=== PATIENT | male | born 1950 | race Caucasian/White ===

== ENCOUNTER 2017-07-02 19:15 | Emergency (ER) | payer OTHER ==
[~2017-07-02] VITALS: Ht 172.7 cm; Wt 85.0 kg
[2017-07-02 19:17] VITALS: BP 147/83; PULSE 61; RESP 16; TEMP 97.8; O2SAT 96
[2017-07-02 20:47] VITALS: BP 136/82; PULSE 60; RESP 18; O2SAT 100
[2017-07-02] MEDS ORDERED: CYCL1TAB29 PO (20:49)
[2017-07-02] MEDS ORDERED: IBUP800T23 PO (20:49)
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
== END 2017-07-02 21:05 | disposition home or self-care (01) ==
LOC: NEPD 19:15
DX: S39.012A Strain of muscle, fascia and tendon of lower back, initial encounter (principal); S16.1XXA Strain of muscle, fascia and tendon at neck level, initial encounter; V49.49XA Driver injured in collision with other motor vehicles in traffic accident, initial encounter; Y92.524 Gas station as the place of occurrence of the external cause
CPT/HCPCS: 99283

== ENCOUNTER 2018-05-03 19:52 | Inpatient (IN) ==
[2018-05-03] MEDS ORDERED: Morphine Inj 4 MG/ML Vial IV.PUSH ONE (21:35)
--- NOTE | 2018-05-03 21:43 | ED ---
HPI General Chief Complaint: Abdominal Pain Stated Complaint: Abd pain Time Seen by Provider: 05/03/18 21:35 Source: patient and family Mode of arrival: ambulatory Limitations: no limitations History of Present Illness HPI narrative: 68-year-old male presents to the emergency department in the care of his spouse for evaluation of 10/10 abdominal pain 3 hours. Patient states had similar episode of severe pain late Monday night around 2 AM resolved after dose of Pepto-Bismol. Patient's had nausea without vomiting patient had bowel movement today. No bloody stools dark stools after Pepto- Bismol. Patient took dose of Pepto-Bismol today without symptom relief. Patient denies any chronic medical conditions or surgeries takes no prescription medications denies tobacco use occasional alcohol use. No known dietary indiscretion well water ingestion or foreign travel. No known history of gastritis peptic ulcer disease pancreatitis or gallbladder disease. Patient denies chest pain or shortness of breath. Patient is unable to identify exacerbating or alleviating factors. Pain is constant and unremitting. Pain is nonradiating to the back. Patient reports pain is not radiating to the lower extremities and no bladder or bowel dysfunction. No report of dysuria frequency urgency flank pain or hematuria. MD complaint: abdominal pain Onset (ago): day(s) Pain Consistency: constant Location: diffuse Severity: severe Severity scale (1-10): 10 Quality: aching and fullness Radiation: none Migration to: no migration Relieving factors: nothing Exacerbating factors: nothing Associated symptoms: nausea Related Data Allergies Allergy/AdvReac Type Severity Reaction Status Date / Time No Known Allergies Allergy Unverified 05/03/18 21:23 Review of Systems Except as stated in HPI: all other systems reviewed are negative PMFSH History History Provided By: Patient and Family Member Medical History Medical History Patient denies medical problems (Acute) Surgical History Surgical History No history of previous surgery (Acute) Social History Social History Substance History: No History of Abuse Second Hand Smoke Exposure: No Smoking Status: Never smoker How Often Do You Have a Drink Containing Alcohol: Monthly or less Recent Travel in [facility] within the Last 8 Weeks: No Recent Out of Country Travel within the Last 8 Weeks: No Exam Narrative Exam Narrative: GENERAL: Well-nourished, well-developed patient. Apparent discomfort moaning and groaning and holding his abdomen vital signs values in normal range SKIN: Focused skin assessment warm/dry. HEAD: Normocephalic. EYES: No scleral icterus. No injection or drainage. NECK: Supple, trachea midline. No JVD or lymphadenopathy. CARDIOVASCULAR: Regular rate and rhythm without murmurs, gallops, or rubs. Bilateral radial and dorsalis pedis pulses 2+ to palpation. RESPIRATORY: Breath sounds equal bilaterally. No accessory muscle use. GASTROINTESTINAL: Abdomen soft, non-tender to direct palpation no guarding no rebound no palpable pulsatile mass no palpable hepatosplenomegaly, mildly distended. No clinical Rivera sign on exam. MUSCULOSKELETAL: No cyanosis, or edema. BACK: Nontender without obvious deformity. No CVA tenderness. Course Reevaluation(s) Reevaluation #1: Case discussed with on-call [facility] physician Dr. Pacheco will admit to Dr. Peters Initial Documented Vital Signs Temperature 99.1 F 05/03/18 21:24 Pulse Rate 76 05/03/18 21:24 Respiratory Rate 16 05/03/18 21:24 Blood Pressure 136/77 05/03/18 21:24 Pulse Oximetry 100 05/03/18 21:24 Last Documented Vital Signs Temperature 99.1 F 05/03/18 21:24 Pulse Rate 67 05/04/18 00:54 Respiratory Rate 14 05/04/18 00:54 Blood Pressure 134/65 05/04/18 00:54 Pulse Oximetry 99 05/04/18 00:54 Critical Care Time Critical Care Time: Yes Total Critical Care Time: 35 Attestation: Aggregate critical care time was 35 minutes. Time to perform other separately billable procedures was not included in the critical care time. My time did not include minutes spent treating any other patients simultaneously or on activities that did not directly contribute to the patient's treatment. The services I provided to this patient were to treat and/or prevent clinically significant deterioration that could result in: Aneurysm, arrhythmia, I provided critical care services requiring my management, as noted below: Chart data review, documentation time, medication orders and management, vital sign assessments/reviewing monitor data, ordering and reviewing lab tests, ordering and interpreting/reviewing x-rays and diagnostic studies, care of the patient and discussion of the patient with the admitting physicians. Medical Decision Making MDM Narrative Medical decision making narrative: 68-year-old male with severe abdominal pain constant 3 hours intermittent onset since Monday night. Afebrile. Nausea without vomiting. Last bowel movement today. No history of CAD hypertension dyslipidemia or tobaccoism. Also no known history of kidney stones biliary colic gastritis peptic ulcer disease or pancreatitis. Patient placed on secured entrance monitor with continuous pulse oximetry IV access obtained patient administered morphine sulfate 4 mg IV Zofran 4 mg IV maintenance IV fluids 125 cc/h lab work collected and sent for resulting CT abdomen pelvis ordered along with EKG and portable upright x-ray to evaluate for free air Total chest x-ray no obvious subdiaphragmatic free air; EKG sinus rhythm rate [address] elevation injury pattern or ectopy noted artifact is present at baseline; patient has received morphine sulfate 4 mg without any pain relief Dilaudid 1 mg IV has been ordered. Ultrasound performed which identifies multiple stones gallbladder wall thickening and pericholecystic fluid consistent with acute cholecystitis. White count is normal LFTs are normal range does not appear to have obstructive process pancreas not well visualized. Patient started on Zosyn 4.5 g IV piggyback. Patient's case discussed with medicine. Patient is aware that he may require surgical intervention. Patient's discomfort is 2/10 intensity ultrasound is pending no nausea or vomiting CT abdomen pelvis was remarkable for 1 cm stone without obvious inflammatory changes of the gallbladder and no pericholecystic fluid and no dilatation of the gallbladder; diverticulosis without diverticulitis; liver cysts; renal cyst. At 1:15 AM ultrasound of gallbladder shows gallbladder wall thickening multiple stones and pericholecystic fluid for cholecystitis; patient's lab values are otherwise grossly normal range. Patient will be given Zosyn 4.5 g IV PB and patient will be admitted for cholecystitis Differential Diagnosis Differential Diagnosis: Abdominal pain, gastritis, cholecystitis, biliary colic , pancreatitis, atypical chest pain/ACS, renal colic, ischemic colitis, abdominal aortic aneurysm, dissection, partial bowel obstruction Medical Records Medical records reviewed: Yes I reviewed the patient's medical records. Lab Data Result diagrams: 05/03/18 21:40 05/03/18 21:40 Lab Results 05/03/18 05/03/18 Range/Units 21:40 21:40 WBC 8.7 (4.0-11.0) th/mm3 RBC 5.34 (4.50-5.90) mil/mm3 Hgb 15.9 (13.0-17.0) gm/dL Hct 47.1 (39.0-51.0) % MCV 88.2 (80.0-100.0) fL MCH 29.7 (27.0-34.0) pg MCHC 33.7 (32.0-36.0) % RDW 14.4 (11.6-17.2) % Plt Count 199 (150-450) th/mm3 MPV 8.8 (7.0-11.0) fL Neut % (Auto) 70.6 H (16.0-70.0) % Lymph % (Auto) 17.1 (9.0-44.0) % [place] % (Auto) 11.0 H (0.0-8.0) % Eos % (Auto) 0.9 (0.0-4.0) % Baso % (Auto) 0.4 (0.0-2.0) % Neut # (Auto) 6.1 (1.8-7.7) th/mm3 Lymph # (Auto) 1.5 (1.0-4.8) th/mm3 [place] # (Auto) 1.0 H (0.0-0.9) th/mm3 Eos # (Auto) 0.1 (0.0-0.4) th/mm3 Baso # (Auto) 0.0 (0.0-0.2) th/mm3 WBC Differential . Differential Comment Auto diff final Sodium 136 (136-145) meq/L Potassium 4.8 (3.5-5.1) meq/L Chloride 105 (98-107) meq/L Carbon Dioxide 21.7 (21.0-32.0) meq/L Anion Gap 9 (5-15) meq/L BUN 12 (7-18) mg/dL Creatinine 1.44 H (0.60-1.30) mg/dL Estimated GFR 49 L (>89) mL/min Random Glucose 121 H (74-106) mg/dL Calcium 9.1 (8.5-10.1) mg/dL Total Bilirubin 0.4 (0.2-1.0) mg/dL AST 27 (15-37) U/L ALT 19 (12-78) U/L Alkaline Phosphatase 51 (45-117) U/L Total Creatine Kinase 166 (39-308) U/L CK-MB (CK-2) 2.0 (0.5-3.6) ng/mL Troponin I Less than 0.02 L (0.02-0.05) ng/mL Total Protein 7.9 (6.4-8.2) g/dL Albumin 3.7 (3.4-5.0) g/dL Lipase 136 (73-393) U/L Imaging Data Radiologist's impression: Abdomen/Pelvis CT 05/03/18 21:35 CONCLUSION: 1. Calcified gallstone. 2. Enlarged prostate. Chest X-Ray 05/03/18 21:35 CONCLUSION: Mild basilar atelectasis. Right-sided aortic arch. Gallbladder Ultrasound 05/03/18 23:28 CONCLUSION: 1. Multiple gallstones, gallbladder wall thickening, and pericholecystic fluid. 2. Normal dimension common hepatic duct. 3. Right renal and hepatic cysts. Discharge Plan Discharge Disposition Patient Disposition: 30 Still Patient Discharge Condition Condition: Stable Discharge Details Diagnosis: Cholecystitis Physicians Team ED Provider: Paula Hale Primary Care Provider: Ramírez Chauhan Attending Provider: Bladimir Peters Status ED Status: Admitted Patient
[2018-05-03] MEDS ORDERED: Sod Chloride 0.9% Inj 1,000 ML IV.CONT SCH (21:45)
[2018-05-03 21:57] LABS: Baso % (Auto) 0.4 % (0.0-2.0); Eos # (Auto) 0.1 th/mm3 (0.0-0.4); Eos % (Auto) 0.9 % (0.0-4.0); Hematocrit 47.1 % (39.0-51.0); Hemoglobin 15.9 gm/dL (13.0-17.0); Lymph # (Auto) 1.5 th/mm3 (1.0-4.8); Lymph % (Auto) 17.1 % (9.0-44.0); Mean Corpuscular HGB Conc 33.7 % (32.0-36.0); Mean Corpuscular Hemoglobin 29.7 pg (27.0-34.0); Mean Corpuscular Volume 88.2 fL (80.0-100.0); Mean Platelet Volume 8.8 fL (7.0-11.0); Neut # (Auto) 6.1 th/mm3 (1.8-7.7); Neut % (Auto) 70.6 % (16.0-70.0); Platelet Count 199 th/mm3 (150-450); Red Blood Count 5.34 mil/mm3 (4.50-5.90); Red Cell Distribution Width 14.4 % (11.6-17.2); White Blood Count 8.7 th/mm3 (4.0-11.0)
[2018-05-03] MEDS ORDERED: Sodium Chlor 0.9% Inj 500 ML IV.SIG ONE (22:02)
[2018-05-03] MEDS ORDERED: HYDROmorphone PF Inj 2 MG/ML Vial IV.PUSH ONE (22:02)
[2018-05-03 22:08] LABS: Alanine Aminotransferase 19 U/L (12-78)
[2018-05-03 22:13] LABS: Albumin 3.7 g/dL (3.4-5.0); Alkaline Phosphatase 51 U/L (45-117); Anion Gap 9 meq/L (5-15); Aspartate Aminotransferase 27 U/L (15-37); Blood Urea Nitrogen 12 mg/dL (7-18); Calcium 9.1 mg/dL (8.5-10.1); Carbon Dioxide 21.7 meq/L (21.0-32.0); Chloride 105 meq/L (98-107); Creatine Kinase 166 U/L (39-308); Glomerular Filtration Rate 49 mL/min (>89); Glucose,Random 121 mg/dL (74-106); Lipase 136 U/L (73-393); Sodium 136 meq/L (136-145); Total Protein 7.9 g/dL (6.4-8.2)
[2018-05-03 22:16] LABS: Potassium 4.8 meq/L (3.5-5.1)
--- NOTE | 2018-05-03 22:40 | XR ---
EXAM DATE: 05/03/2018 9:50 PM EDT AGE/SEX: 68 years / Male INDICATIONS: Chest pain CLINICAL DATA: This is the patient's initial encounter. Patient reports that signs and symptoms have been present for 1 day and indicates a pain score of 10/10. MEDICAL/SURGICAL HISTORY: None. None. COMPARISON: No prior exams available for comparison. FINDINGS: Right-sided aortic arch. Mild basilar density probably atelectasis. No effusion. No pneumothorax. No acute bony abnormality. CONCLUSION: Mild basilar atelectasis. Right-sided aortic arch. Electronically signed by: Noe Bledsoe MD 05/03/2018 10:39 PM EDT
--- NOTE | 2018-05-03 23:06 | CT ---
EXAM DATE: 05/03/2018 10:56 PM EDT AGE/SEX: 68 years / Male INDICATIONS: Abdominal pain and nausea. CLINICAL DATA: This is the patient's initial encounter. Patient reports that signs and symptoms have been present for 1 day and indicates a pain score of 10/10. MEDICAL/SURGICAL HISTORY: None. None. ORAL CONTRAST: No oral contrast ingested. RADIATION DOSE: 13.60 CTDI (mGy) COMPARISON: No prior exams available for comparison. TECHNIQUE: Multiple contiguous axial images were obtained through the abdomen and pelvis following b olus infusion of 96 ml Omnipaque 350 (iohexol) nonionic water-soluble contrast as a single exam dos e. No oral contrast ingested. Using automated exposure control and adjustment of the mA and/or kV ac cording to patient size, radiation dose was kept as low as reasonably achievable to obtain optimal di agnostic quality images. DICOM format image data is available electronically for review and comparis on. FINDINGS: Lower Lungs: The visualized lower lungs are clear. Liver: The liver has a homogeneous density without solid lesion. 1.4 cm cyst medial segment left lobe . There is no dilation of the biliary tree. There is a solitary calcified gallstone measuring 10 mm. Spleen: Homogeneous density without enlargement. Pancreas: Unremarkable without mass or calcification. Kidneys: Normal in size and shape. No evidence of mass or hydronephrosis. Multiple right renal cysts measuring up to 5.3 cm. Adrenal Glands: Unremarkable. Aorta: The aorta and proximal iliac vessels are grossly unremarkable without aneurysmal dilation. Bowel/Mesentery: No dilated loops of small or large bowel. Abdominal Wall: Intact. Retroperitoneum: No evidence of adenopathy in the retrocrural, para-aortic, or deep pelvic regions. Bladder: Contours are smooth. Reproductive Organs: Enlarged prostate measuring in excess of 7 cm. Inguinal: The inguinal region is unremarkable without evidence of adenopathy. Bony Structures: Focal collection of gas left parasagittal L5-S1 region suggests vacuum phenomenon i n a paracentral disc protrusion. No significant deformity of the thecal sac at this level. CONCLUSION: 1. Calcified gallstone. 2. Enlarged prostate. Electronically signed by: Yang Rodriguez MD 05/03/2018 11:04 PM EDT
[2018-05-03] MEDS ORDERED: Ketorolac Inj 30 MG/ML (IVP) Vial IV.PUSH ONE (23:28)
[2018-05-03] MEDS ORDERED: Pantoprazole Inj 40 MG Vial IV.PUSH ONE (23:28)
--- NOTE | 2018-05-04 00:56 | US ---
EXAM DATE: 05/04/2018 12:36 AM EDT AGE/SEX: 68 years / Male INDICATIONS: Abdominal pain x 3 hours. CLINICAL DATA: This is the patient's initial encounter. Patient reports that signs and symptoms have been present for 1 day and indicates a pain score of 10/10. MEDICAL/SURGICAL HISTORY: . Abdominal pain. None. COMPARISON: [facility] – [place], [place], CT ABDOMEN & PELVIS W CONTRAST, 05/03/2018. . MEASUREMENTS: Liver:__ 15.5 cm. Common Bile Duct:__ 5mm. FINDINGS: Liver: 1.4 cm simple cyst of the left lobe. No solid lesions. No biliary ductal dilatation. Portal Vein: Hepatopedal flow seen in portal vein. Common Duct: No intraluminal mass or stone visualized. Gallbladder: Echogenic 10 mm stone near the neck of the gallbladder. There are several smaller nonsh adowing echogenic stones in the fundus. Small amount of pericholecystic fluid. The gallbladder wall m easures up to 5 mm in thickness. Pancreas: Not well visualized. Right Kidney: Multiple cysts, the largest measuring 5.2 cm. No evidence of hydronephrosis. CONCLUSION: 1. Multiple gallstones, gallbladder wall thickening, and pericholecystic fluid. 2. Normal dimension common hepatic duct. 3. Right renal and hepatic cysts. Electronically signed by: Yang Rodriguez MD 05/04/2018 12:54 AM EDT
[2018-05-04] MEDS ORDERED: Chlorhexidine Gluconate 2% 1 Pack (2 Cloths) TOPICAL SCH (04:30)
[2018-05-04] MEDS ORDERED: Metoprolol Tartrate 25 MG Tablet PO SCH (04:30)
[2018-05-04] MEDS ORDERED: Sodium Chlor 0.9% Inj 500 ML IV.SIG SCH (05:00)
--- NOTE | 2018-05-04 08:39 | ECG ---
Date Performed: 05/03/2018 Time Performed: 22:05:04 PTAGE: 68 years EKG: Sinus rhythm NORMAL ECG NO PREVIOUS TRACING DOCTOR: Ricardo Villegas Interpretating Date/Time 05/04/2018 08:38:40
[2018-05-04 10:25] VITALS: RESP 15
[2018-05-04] MEDS ORDERED: Lidocaine PF 1% Inj 5 ML Syringe INFILTRATN ONE (12:00)
[2018-05-04] MEDS ORDERED: Neostigmine Inj 5 MG/5 ML Syringe IV.PUSH ONE (12:00)
[2018-05-04] MEDS ORDERED: Phenylephrine/NS 1000 MCG/10ML Syringe IV.PUSH ONE (12:00)
[2018-05-04] MEDS ORDERED: Glycopyrrolate Inj 1 MG/5 ML Syringe IV.PUSH ONE (12:00)
--- NOTE | 2018-05-04 14:32 | P.HPGS ---
History of Present Illness Service: General Surgery Primary Care Physician: Ramírez Chauhan MD Chief Complaint: Abdominal pain History of Present Illness: 68-year-old male who developed acute onset of severe upper abdominal pain about 5 days ago after eating a heavy meal with meat balls. The pain was self- limited and he felt okay for a few days after that. However, yesterday he again developed severe epigastric abdominal pain improved only with large doses of IV narcotics in the emergency department. He was noted to have normal labs. CT of the abdomen pelvis showed calcified gallstone. Ultrasound of the gallbladder shows gallstones, gallbladder wall thickening, and pericholecystic fluid. The patient states that he is healthy and has never had any surgeries. - Diagnosis (1) Acute cholecystitis due to biliary calculus Inpatient Certification: I certify that the inpatient services were ordered in accordance with Medicare regulations governing the order. This includes certification that hospital inpatient services are reasonable and necessary and in the case of services not specified as inpatient-only under 42 CFR 419.22(n), that they are appropriately provided as inpatient services in accordance to with the 2-midnight benchmark under 43 CFR 412.3(e) Review of Systems All other systems reviewed negative except as stated in HPI PMFSH - History History Provided By: Patient, Family Member - Medical History Medical History: Medical History (Last Reviewed 05/03/18 @ 21:40 by Paula Hale MD) Patient denies medical problems - Surgical History Surgical History: Surgical History (Last Reviewed 05/03/18 @ 21:40 by Paula Hale MD) No history of previous surgery - Tobacco History Second Hand Smoke Exposure: No Smoking Status: Never smoker - Alcohol History How Often Do You Have a Drink Containing Alcohol: 2 to 3 times a week - Substance Use History Substance History: No History of Abuse - Travel History Recent Travel in the [place] Within the Last 8 Weeks: No Recent Travel Out of the Country Within the Last 8 Weeks: No - Immunization History Tetanus Immunization: >5 Years Hx Influenza Vaccine This Season: No Medications and Allergies Active Medications: Active Medications Chlorhexidine Gluconate (Chlorhexidine 2% Cloth) 3 pack [facility] Stop: 05/07/18 04:18 Sodium Chloride (Ns Inj) 500 mls @ 30 mls/hr IV.SIG .Q10H [facility] Stop: 05/07/18 04:18 Lactated Ringer's (Lr 1000 Ml Inj) 1,000 mls @ 30 mls/hr IV.SIG .Q24H [facility] Stop: 05/07/18 04:18 Last Admin: 05/04/18 12:37 Dose: 30 mls/hr Metoprolol Tartrate (Lopressor) 25 mg PO [facility] Stop: 05/07/18 04:18 Povidone Iodine (Betadine 5% Antisepsis Kit) 1 applicatio EACH [facility] Stop: 05/07/18 04:18 Sodium Chloride (Ns Flush) 2 ml IV.FLUSH PRN PRN PRN Reason: FLUSH AFTER USING IV ACCESS Allergies Allergy/AdvReac Type Severity Reaction Status Date / Time No Known Allergies Allergy Unverified 05/03/18 21:23 Exam Vital signs: Vital Signs 05/03/18 21:24 05/03/18 23:30 05/03/18 23:32 Temperature 99.1 F Pulse Rate 76 Respiratory Rate 16 14 14 Blood Pressure 136/77 Pulse Oximetry 100 05/04/18 00:53 05/04/18 00:54 05/04/18 04:00 Temperature 97.6 F Pulse Rate 67 66 Respiratory Rate 14 14 14 Blood Pressure 134/65 122/71 Pulse Oximetry 99 96 05/04/18 08:00 Temperature 98.0 F Pulse Rate 66 Respiratory Rate 15 Blood Pressure 118/70 Pulse Oximetry 96 Intake & Output 05/03/18 05/04/18 05/04/18 18:59 06:59 18:59 Weight 185 kg Other: Date of Last Bowel Movement 05/03/18 05/03/18 Weight On Admission 83.915 kg Narrative: GENERAL: Awake and alert. No acute distress. Cooperative. HEAD: Normocephalic. Atraumatic. EYES: Pupils equal round and reactive to light bilaterally. No scleral icterus. ENT: Moist oral mucosa. NECK: Trachea midline. CHEST: Lungs clear to auscultation bilaterally with no wheezing or rhonchi. No respiratory distress. CARDIOVASCULAR: Regular rate and rhythm. ABDOMEN: Soft, mild right upper quadrant tenderness with inspiration. EXTREMITIES: No cyanosis or edema. SKIN: Warm, dry, nonjaundiced. Results - Results CT scan - abdomen: report reviewed CT scan - pelvis: report reviewed US - abdomen: report reviewed Caprini VTE Risk Assessment Caprini VTE Risk Assessment: No/Low Risk (score <= 1) Caprini Risk Assessment Model: Point Value = 1 Point Value = 2 Point Value = 3 Point Value = 5 Age 41-60 Minor surgery BMI > 25 kg/m2 Swollen legs Varicose veins or History of unexplained or recurrent spontaneous Oral contraceptives or hormone replacement Sepsis (< 1 month) Serious lung disease, including pneumonia (< 1 month) Abnormal pulmonary function Acute myocardial infarction Congestive heart failure (< 1 month) History of inflammatory bowel disease Medical patient at bed rest Age 61-74 Arthroscopic surgery Major open surgery (> 45 min) Laparoscopic surgery (> 45 min) Malignancy Confined to bed (> 72 hours) Immobilizing plaster cast Central venous access Age >= 75 History of VTE Family history of VTE Factor V Leiden Prothrombin [id number] Lupus anticoagulant Anticardiolipin antibodies Elevated serum homocysteine Heparin-induced thrombocytopenia Other congenital or acquired thrombophilia Stroke (< 1 month) Elective arthroplasty Hip, pelvis, or leg fracture Acute spinal cord injury (< 1 month) Prophylaxis Regimen: Total Risk Factor Score Risk Level Prophylaxis Regimen 0-1 Low Early ambulation 2 Moderate Order ONE of the following: *Sequential Compression Device (SCD) *Heparin 5000 units SQ BID 3-4 Higher Order ONE of the following medications: *Heparin 5000 units SQ TID *Enoxaparin/Lovenox 40 mg SQ daily (WT < 150 kg, CrCl > 30 mL/min) *Enoxaparin/Lovenox 30 mg SQ daily (WT < 150 kg, CrCl > 10-29 mL/min) *Enoxaparin/Lovenox 30 mg SQ BID (WT < 150 kg, CrCl > 30 mL/min) AND/OR *Sequential Compression Device (SCD) 5 or more Highest Order ONE of the following medications: *Heparin 5000 units SQ TID (Preferred with Epidurals) *Enoxaparin/Lovenox 40 mg SQ daily (WT < 150 kg, CrCl > 30 mL/min) *Enoxaparin/Lovenox 30 mg SQ daily (WT < 150 kg, CrCl > 10-29 mL/min) *Enoxaparin/Lovenox 30 mg SQ BID (WT < 150 kg, CrCl > 30 mL/min) AND *Sequential Compression Device (SCD) Assessment and Plan - Assessment (1) Acute cholecystitis due to biliary calculus Code(s): K80.00 - Calculus of gallbladder with acute cholecystitis without obstruction Status: Acute - Plan Recommend to proceed to the operating room for laparoscopic possible open cholecystectomy. Discussed the surgery in detail with the patient as well as risks including injury to the common bile duct. He understands and desires to proceed. H&P: Quality - VTE Deep Vein Thrombosis/Pulmonary Embolism Present on Admission: No
[2018-05-04] MEDS ORDERED: Bupivacaine/Epinephrine Inj 0.25% 50 ML Vial ONE (14:43)
[2018-05-04] MEDS ORDERED: ceFAZolin 2 GM Premix Inj 2 GM/50 ML PIGGYBACK IV.SIG ONE (15:33)
--- NOTE | 2018-05-04 16:52 | P.OP ---
Date of procedure: 05/07/18 Procedure: Laparoscopic cholecystectomy Anesthesia: TREVOR Surgeon: Jd Lopes MD [employer]: Jami DICK Estimated blood loss (mL): 50 Pathology: other (gallbladder) Operation and Findings: Operative findings: Acutely inflamed distended gallbladder. Required decompression. Complications: None apparent Procedure in detail: The patient was taken to the operating room and placed in the supine position. General endotracheal anesthesia was induced. The abdomen was prepped and draped in usual sterile fashion and a surgical timeout was performed to verify correct patient procedure and site. Appropriate perioperative antibiotics were administered. Local anesthetic was injected in the skin and subcutaneous tissue superior to the umbilicus and a 5 mm incision performed. The abdomen was entered using the Optiview 5 mm trocar with direct laparoscopic visualization. The abdomen was then insufflated to 15 mmHg with CO2 gas which the patient tolerated well. Next a 12 mm port was placed in the epigastrium and two 5 mm ports in the right upper quadrant and right lateral abdomen. The patient was placed in reverse Trendelenburg position and turned slightly to the left. Attention was turned to the right upper quadrant. The gallbladder was distended and tense. It was unable to be grasped and elevated. A decompression needle and syringe was used to decompress the gallbladder which allowed continued dissection. The dome was grasped and retracted cephalad. The infundibulum was retracted laterally to expose Calot's triangle. There is extensive dense induration and inflammation present. Required use of multiple instruments including the suction fold skiver. Meticulous prolonged blunt dissection and judicious use of electrocautery was used to expose the cystic duct and the cystic artery directly entering the gallbladder. Two clips were placed proximally on each of these structures and one distally and they were transected. The gallbladder was then removed from the liver bed using electrocautery. Hemostasis was achieved. The gallbladder was then removed from the abdomen using an Endo Catch bag. The clips were in place on the cystic duct and cystic artery stumps with no bleeding or bile leakage. The right upper quadrant was copiously irrigated until only clear fluid remained. At this point, the abdomen was allowed to desufflate and trochars were removed. The fascia at the 12 mm port site was closed with 0 Vicryl suture. Skin was closed with subcuticular 4-0 Monocryl as well as Dermabond. The patient tolerated the procedure well and was extubated and taken to PACU in stable condition. All sponge and instrument counts were correct.
[2018-05-04] MEDS ORDERED: HYDROmorphone PF Inj 2 MG/ML Vial IV.PUSH PRN (16:53)
[2018-05-04] MEDS ORDERED: fentaNYL Citrate Inj 100 MCG/2 ML Ampul ONE (17:08)
[2018-05-04] MEDS: Ketorolac 10 MG Tablet PO SCH (19:34)
[2018-05-05] MEDS: Ketorolac 10 MG Tablet PO SCH ×2 (05:45)
[2018-05-08 17:51] VITALS: BP 102/53; TEMP 97.4
[2018-05-08 18:26] VITALS: PULSE 68; O2SAT 92
== END 2018-05-05 15:52 | disposition home or self-care (01) ==
LOC: NEPC 19:52 → NEDA 05-04 01:43 → N06 05-04 04:11
PROVIDERS: ADMIT Surgery; ATTEND Surgery
DX: K80.00 Calculus of gallbladder with acute cholecystitis without obstruction